=== PATIENT | male | born 1965 | race Caucasian/White ===

== ENCOUNTER 2017-03-16 18:47 | Emergency (ER) | payer MEDICARE, MEDICAID ==
[~2017-03-16] VITALS: Ht 180.3 cm; Wt 77.6 kg
[~2017-03-16 18:47] MED LIST: ABILIFY15 MG PO; ATIVAN1 MG PO; BENZTROPINE1 MG PO; BENZTROPINE2 MG PO; CRESTOR20 MG PO; DOCUSATE NA250 MG PO; FLUOXETINE20 MG PO; IBU-8800 MG PO; LORAZEPAM0.5 MG/TAB FT; LORTAB ELIXIR473 ML PO; METFORMIN 500M500 MG PO; PRINIVIL10 MG PO
[2017-03-16 20:22] LABS: HEMOGLOBIN 16.2 g/dL (14.1-18.0); LYMPH # 1.4 K/mm3 (0.7-4.5); LYMPH % 24.7 % (10-50)
--- NOTE | 2017-03-16 20:31 | Emergency Room Report ---
History of Present Illness Time Seen by 2020 Presenting Problem in Triage Pt arrived:Walked Presenting Problem:PT WAS BROUGHT TO ER PER PT REQUEST BY CPD R/T "WANTING HELP ". PT STATES HE NEEDS HELP WITH "FORBIDDEN FRUIT". PT DENIES SUICIDAL IDEATION OR THOUGHTS OF SELF HARM OR HARM TO OTHERS. 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 N Clinical Suspician of Infection? N Mental Status: 1 - Regular (Normal Baseline) Sepsis Risk:Low Sepsis Risk Have you (or family members/close friends) recently traveled outside the [place]? N If Yes, where/when: Have you had exposure to infectious disease within the past month? N TB? Other? Specify: Source patient, RN notes reviewed, old records Exam Limitations no limitations Comment pt with known schizophrenia who was brought in for eval- pt is limited historian but denied x 2 about suicidial- pt with no chest pain or abd pain Cardiac Chest Pain Chest pain indicative of cardiac No Timing/Duration this evening Severity moderate ALLERGIES Coded Allergies: No Known Allergies (03/16/17) Home Medications Reported Medications Aripiprazole (Abilify) 15 MG PO QHS Rosuvastatin Calcium (Crestor) 20 MG PO QHS Docusate Sodium 250 MG PO DAILY History Medical History General Angina: No ME: No Hypertension? Yes Hyperlipidemia? Yes CHF? No DVT? No PE? No COPD? No Asthma? No Hernia? Yes CVA? No Seizures? No Diabetes? No UTI? No Stones? No GB Disease: No Hepatitis? No Arthritis? Yes Cataracts? No Glaucoma? No TB? No Anxiety? Yes Depression? Yes Cancer? No More? Yes Additional hx: SCHIZOPRENIA Immunization Hx DT/Tetanus Unknown Flu 2012-FSN Pneumonia Received In Past Surgical Hx Previous Surgery?Y Hernia Repair Family History Family Hx Diabetes Yes CAD Yes Hypertension Yes Hyperlipidemia Yes Cancer Yes TB No Social History Smoking Hx Smoker: Current Every Day Smoker Tobacco: Yes Type Cigarettes Packs/day < 1 Pack Alcohol Alcohol: No Drugs none Review of Systems All Other Systems Reviewed and Negative Constitutional denies fever Eyes denies drainage ENT denies: ear discharge, epistaxis, throat pain. Respiratory denies cough Cardiovascular denies chest pain, denies syncope Gastrointestinal denies diarrhea, denies vomiting Genitourinary denies: dysuria, frequency, hesitancy, hematuria. Musculoskeletal denies back pain, denies joint pain, denies joint swelling, denies neck pain Skin denies rash Psychiatric/Neurological denies headache, denies seizure Physical Exam Vital Signs Vital Signs Date Time Temp Pulse Resp B/P Pulse O2 O2 Flow FiO2 Ox Delivery Rate 03/16 1857 97.8 69 18 163/103 97 - WBC >12,000 or <4,000 or 10% bands? 2 or more SIRS Criteria Met? B/P:163/103 MAP:123 Creatinine >2.0? UA output<0.5ml/kg/hr for 2 hrs? Platelet count >100,000? Lactate >2.0mmol/1? INR >1.2 or PTT > than 60 sec? Evidence of Organ Dysfunction? Provider documented clinical suspician of infection? N Sepsis Criteria Count: 0 Sepsis Risk: Low Sepsis Risk General Appearance no apparent distress Eye Exam - bilateral eye PERRL, bilateral eye EOMI Ear, Nose, Throat normal ENT inspection Neck supple Respiratory Status No: respiratory distress. Lung Sounds bilateral: lungs clear. Cardiovascular regular rate/rhythm, systolic murmur Peripheral Pulses Pulses normal Yes Gastrointestinal soft Extremities normal inspection Strength 4 Upper Ext (L), 4 Upper Ext (R), 4 Lower Ext (L), 4 Lower Ext (R) Neurologic alert, speech pathologist II-XII nml as tested, no motor/sensory deficits Reflexes Reflexes normal No Mental status normal mood/affect Skin intact Medical Decision Making LABS/Meds/Orders Pt receiving controlled substance in ED? No Results/Orders Laboratory Tests 03/16/172005: Sodium Pending, Potassium Pending, Chloride Pending, Carbon Dioxide Pending, BUN Pending, Creatinine Pending, Estimated Creat Clear Pending, Estimated GFR (MDRD) Pending, Glucose Pending, Calcium Pending, Total Bilirubin Pending, AST Pending, ALT Pending, Alkaline Phosphatase Pending, Total Protein Pending, Albumin Pending, Globulin Pending, Albumin/Globulin Ratio Pending, WBC 5.5, RBC 5.13, Hgb 16.2, Hct 47.3, MCV 92.2, RDW 13.4, Plt Count 275, MPV 7.0 L, Gran % 66.9, Gran # 3.7, Lymphocytes % 24.7, Monocytes % 6.4, Eosinophils % 1.8, Basophils % 0.2, Lymphocytes # 1.4, Monocytes # 0.4, Eosinophils # 0.1, Basophils # 0.0, PUBS MCHC 34.2, MCH 31.5 H, Alcohols Pending Orders Procedure Date/time Status DRUG ABUSE SCREEN (TRIAGE) 03/16 1930 Active CBC WITH AUTO DIFF 03/16 1930 Complete CHEM 12 PROFILE 03/16 1930 Active ALCOHOL 03/16 1930 Active Departure Departure Time of Disposition 2027 Disposition DC Home or Self Care(routine) Clinical Impression Primary Impression: Schizophrenia Qualifiers: Schizophrenia type: unspecified Qualified Code: F20.9 - Schizophrenia, unspecified Condition STABLE Referrals Lupe CHEN,Kai Lin (Family) Patient Instructions DI for Schizophrenia Additional Instructions resume prev meds Discharge Counseling Counseled pt/family regarding diagnosis, test results, medications/RX, follow up needs ED Critical Care Critical Care No at 2030
[2017-03-16 22:20] VITALS: BP 160/91
== END 2017-03-16 22:47 | disposition home or self-care (01) ==
LOC: ER 18:47
PROVIDERS: Emergency Medicine
DX: F20.9 Schizophrenia, unspecified (principal); I10 Essential (primary) hypertension; Z79.899 Other long term (current) drug therapy; F41.8 Other specified anxiety disorders; Z72.0 Tobacco use